=== PATIENT | female | born 1950 | race Caucasian/White ===

== ENCOUNTER 2024-11-10 13:12 | Outpatient (CLI) | payer MEDICARE, SELFPAY | END 2024-11-10 13:13 | disposition home or self-care (01) | LOC: NFLDREF 11-14 17:01 | DX: N30.00 Acute cystitis without hematuria (principal); B96.5 Pseudomonas (aeruginosa) (mallei) (pseudomallei) as the cause of diseases classified elsewhere | CPT/HCPCS: 87086 ==